=== PATIENT | male | born 1965 | race African-American/Black ===

== ENCOUNTER 2020-11-17 04:41 | Day surgery (SDC) | payer BC, OTHER ==
[2020-11-13 16:48] VITALS: BMI 20.3
[2020-11-17 10:50] VITALS: BP 101/84; PULSE 59; TEMP 99
== END 2020-11-17 10:59 | disposition home or self-care (01) ==
LOC: JASU-ENDO 04:41
PROVIDERS: ATTEND Internal Medicine Gastroenterology
PROC: 0DJD8ZZ Inspection of Lower Intestinal Tract, Via Natural or Artificial Opening Endoscopic (ICD-10-PCS; principal; 2020-11-17 09:00)
DX: Z12.11 Encounter for screening for malignant neoplasm of colon (principal); K64.8 Other hemorrhoids